=== PATIENT | female | born 1985 | race Caucasian/White ===

== ENCOUNTER 2017-11-03 21:42 | Emergency (ER) | payer MEDICAID ==
[2016-09-22 13:58] VITALS: Wt 75.8 kg
[~2017-11-03 21:42] MED LIST: ACE3 PO; AMPH20TA18 PO; BUTA1CAP5 PO; CEPH-13 PO; CIPR-214 PO; CLIN300C99 PO; DAR100 PO; DEXT10TA9 PO; FAMO20TA28 PO; FOLI-68 PO; IBU600 PO; IBU800 PO; IBUP800T37 PO; NO RTN MEDS; OMEP-218 PO; ONDA4TAB PO; OXYC-865 PO; OXYC-869 PO; PAR20 PO; PHEN200T32 PO; PREG150C33 PO; PREG75CA60 PO; SERT-173 PO; SULF-198 PO; TRAM-420 PO; birth control PO
[2017-11-03] MEDS ORDERED: ONDA4TAB PO (22:01)
--- NOTE | 2017-11-03 22:02 | ER Report ---
History and Physical Time Seen By MD: 22:01 Hx. of Stated Complaint: PT IS 10 WEEKS AND IS EXPERIENCING SWELLING TO LEFT BREAST/ AREOLA HPI/ROS CHIEF COMPLAINT: pain and swelling of left breast/nipple area. HISTORY OF PRESENT ILLNESS: This is a 32 year old female. She is 10 weeks into current . She started having some swelling and pain of the left nipple about 5 days ago. Having increasing pain and warmth over the last two days. Has had skin infections and abscesses with prior pregnancies and is concerned that this is what is happening in the breast at this time. No other skin problems currently. Taking Tylenol for pain, but not helping much today. Sees Dr. Palm and Dr. Hou for care. No fevers. Having intermittent nausea , but not worse than what she would expect with early . Allergies: Coded Allergies: hydrocodone (Verified Allergy, Intermediate, VOMITING AND ITCHING, 11/19/15 ) latex (Verified Allergy, Mild, RASH, 11/19/15) Home Meds Active Scripts Acetaminophen With Codeine # 3 (TYLENOL WITH CODEINE #3 TABLET) 1 Each Tablet, 1 EACH PO Q4H Y for PAIN, #10 TAB 0 Refills Prov:DYLAN GUTIERREZ MD 11/03/17 Cephalexin Monohydrate (CEPHALEXIN) 500 Mg Cap, 500 MG PO Q6H, #40 CAP 0 Refills Prov:DYLAN GUTIERREZ MD 11/03/17 Reported Medications Ondansetron (ZOFRAN ODT) 4 Mg Tab.rapdis, 4 MG PO Q12H, TAB.GEOVANNY 11/03/17 Ibuprofen (IBUPROFEN) 800 Mg Tablet, 1 TAB PO TID for PAIN, #30 TAB 09/19/16 Famotidine (PEPCID) 20 Mg Tablet, 20 MG PO BID, #20 TAB 09/19/16 Pregabalin (LYRICA) 75 Mg Capsule, 75 MG PO TID, CAPSULE 09/18/16 [ control] No Conflict Check, PO DAILY 09/18/16 Amphet Asp/Amphet/D-Amphet (ADDERALL 10 MG TABLET) 10 Mg Tablet, 15 MG PO BID 09/18/16 Sertraline Hcl (ZOLOFT) 100 Mg Tablet, 1 TAB PO QDAY, TAB 09/18/16 Discontinued Reported Medications Ciprofloxacin Hcl (CIPROFLOXACIN HCL) 500 Mg Tablet, 500 MG PO Q12H, #30 TAB 09/19/16 Phenazopyridine Hcl (PHENAZOPYRIDINE HCL) 200 Mg Tablet, 200 MG PO TID Y for PAIN, #20 TAB 09/19/16 Oxycodone Hcl/Acetaminophen (PERCOCET 7.5-325 MG TABLET) 1 Each Tablet, 1 EACH PO Q4-6H Y for PAIN, #30 TAB 09/19/16 Reviewed Nurses Notes: Yes Hx Smoking: Yes (10 yrs, 10-15 cigs/day) Smoking Status: Current: Every Day Smoker, Light Tobacco Smoker Exposure to Second Hand Smoke?: Yes Hx Substance Use Disorder: No Hx Alcohol Use: Yes Constitutional Vital Sign - Last 24 Hours 11/03/17 11/03/17 21:51 22:35 Temp 98.6 98.6 Pulse 68 74 Resp 16 16 B/P (MAP) 112/57 111/54 (73) Pulse Ox 93 95 O2 Delivery Room Air Room Air Physical Exam General: Alert, no acute distress. Breast: Evaluated the left breast. Areola is tender and warm compared to rest of the breast. No masses or tenderness in the surrounding breast tissue. No fluctuant pocket noted. No drainage noted. Medical Decision Making ED Course/Re-evaluation ED Course Recommended Cephalexin 500mg 4 times a day and use of some Lidocaine gel topically to help with pain. Also provided Tylenol with Codeine for pain. Hot compresses to be used through the weekend till she sees Dr. Palm or Dr. Hou early this week. She will call Sunday to arrange follow-up with them. Decision to Disposition Date: Nov 03, 2017 Decision to Disposition Time: 22:13 Depart Departure Latest Vital Signs Vital Signs Date Time Temp Pulse Resp B/P (MAP) Pulse Ox O2 Delivery O2 Flow Rate FiO2 11/03/17 22:35 98.6 74 16 111/54 (73) 95 Room Air Impression: Primary Impression: Mastitis during Condition: Improved Disposition: HOME OR SELF-CARE Referrals: JAGDEEP PFEIFFER (PCP) New Scripts Acetaminophen With Codeine # 3 (TYLENOL WITH CODEINE #3 TABLET) 1 Each Tablet 1 EACH PO Q4H Y for PAIN, #10 TAB 0 Refills Prov: DYLAN GUTIERREZ MD 11/03/17 Cephalexin Monohydrate (CEPHALEXIN) 500 Mg Cap 500 MG PO Q6H, #40 CAP 0 Refills Prov: DYLAN GUTIERREZ MD 11/03/17 Patient Instructions: Mastitis (ED) Additional Instructions: Follow-up with Dr. Palm or Dr. House on Sunday. Hot pad applied to the breast every hour as often as you are able. Take Tylenol with Codeine, 1 every 4 hours as needed for severe pain, or just plain Tylenol for mild pain. Take Cephalexin 500mg 4 times a day for 10 days. You can apply some lidocaine jel to help decrease pain as well. DYLAN GUTIERREZ MD Nov 03, 2017 22:01
[2017-11-03] MEDS ORDERED: CEPH500C24 PO (22:15)
[2017-11-03] MEDS ORDERED: ACETAM/CODEINE #3 300-30 MG TH 2 TAB/BOTTLE PO ONE (22:15)
[2017-11-03] MEDS ORDERED: ACET-3017 PO (22:15)
[2017-11-03] MEDS ORDERED: CEPHALEXIN 500 MG CAP TH 2 CAP/BOTTLE PO ONE (22:15)
[2017-11-03] MEDS ORDERED: LIDOCAINE 2% JELLY 5 ML TUBE TP ONE (22:20)
[2017-11-03 22:35] VITALS: BP 111/54
== END 2017-11-03 22:45 | disposition home or self-care (01) ==
LOC: ER 21:51
DX: N61.0 Mastitis without abscess (principal)
CPT/HCPCS: 99282

== ENCOUNTER 2017-11-05 12:34 | Emergency (ER) | payer MEDICAID ==
[2016-09-22 13:58] VITALS: Wt 75.8 kg
[~2017-11-05 12:34] MED LIST changes: +ACET-3017 PO; +CEPH500C24 PO
--- NOTE | 2017-11-05 12:40 | ER Report ---
History and Physical Time Seen By MD: 12:40 HPI/ROS CHIEF COMPLAINT: Abscess of the left nipple HISTORY OF PRESENT ILLNESS: This is a 32-year-old female presents to the emergency department for an abscess of the left nipple. Patient states she began to have some left nipple discomfort actually 5 days ago, began to increase in size and discomfort. Patient was evaluated in the emergency department on Sunday, given a prescription for Keflex followed up with her OB/ SENIOR [employer]INEER today subsequently they sent her back to the emergency department as the nipple and abscessed area has increased in size. They did consult with Dr. Barraza the general surgeon on-call to drain the abscess. They did send her to the ER for an ultrasound. The patient states the pain is intermittent and were from 2-8 out of 10. No drainage. No chest pain or shortness of breath. Intermittent chills no fevers. No nausea or vomiting. REVIEW OF SYSTEMS: Respiratory: No cough, no dyspnea. Cardiovascular: No chest pain, no palpitations. Gastrointestinal: No vomiting, no abdominal pain. Musculoskeletal: No back pain. Integumentary: As above. Allergies: Coded Allergies: hydrocodone (Verified Allergy, Intermediate, VOMITING AND ITCHING, 11/19/15 ) latex (Verified Allergy, Mild, RASH, 11/19/15) Home Meds Active Scripts Cephalexin Monohydrate (CEPHALEXIN) 500 Mg Cap, 500 MG PO Q6H, #40 CAP 0 Refills Prov:DYLAN GUTIERREZ MD 11/03/17 Reported Medications Ondansetron (ZOFRAN ODT) 4 Mg Tab.rapdis, 4 MG PO Q12H, TAB.GEOVANNY 11/03/17 Ibuprofen (IBUPROFEN) 800 Mg Tablet, 1 TAB PO TID for PAIN, #30 TAB 09/19/16 Famotidine (PEPCID) 20 Mg Tablet, 20 MG PO BID, #20 TAB 09/19/16 Pregabalin (LYRICA) 75 Mg Capsule, 75 MG PO TID, CAPSULE 09/18/16 Amphet Asp/Amphet/D-Amphet (ADDERALL 10 MG TABLET) 10 Mg Tablet, 15 MG PO BID 09/18/16 Sertraline Hcl (ZOLOFT) 100 Mg Tablet, 1 TAB PO QDAY, TAB 09/18/16 Discontinued Reported Medications [ control] No Conflict Check, PO DAILY 09/18/16 Ciprofloxacin Hcl (CIPROFLOXACIN HCL) 500 Mg Tablet, 500 MG PO Q12H, #30 TAB 09/19/16 Phenazopyridine Hcl (PHENAZOPYRIDINE HCL) 200 Mg Tablet, 200 MG PO TID Y for PAIN, #20 TAB 09/19/16 Oxycodone Hcl/Acetaminophen (PERCOCET 7.5-325 MG TABLET) 1 Each Tablet, 1 EACH PO Q4-6H Y for PAIN, #30 TAB 09/19/16 Discontinued Scripts Acetaminophen With Codeine # 3 (TYLENOL WITH CODEINE #3 TABLET) 1 Each Tablet, 1 EACH PO Q4H Y for PAIN, #10 TAB 0 Refills Prov:DYLAN GUTIERREZ MD 11/03/17 Past Medical/Surgical History The patient has a past medical and surgical history of nerve pain in her legs, kidney stones, depression, anxiety, cystoscopy and stent placement. Reviewed Nurses Notes: Yes Hx Smoking: Yes (10 yrs, 10-15 cigs/day) Smoking Status: Current: Every Day Smoker, Light Tobacco Smoker Exposure to Second Hand Smoke?: Yes Hx Substance Use Disorder: No Hx Alcohol Use: Yes Constitutional Vital Sign - Last 24 Hours 11/05/17 11/05/17 12:39 16:10 Temp 99.1 Pulse 94 90 Resp 18 18 B/P (MAP) 118/63 112/54 (73) Pulse Ox 93 94 O2 Delivery Room Air Room Air Intake and Output 11/05/17 11/05/17 11/06/17 15:00 23:00 07:00 Intake Total 50 ml Balance 50 ml Physical Exam General Appearance: The patient is alert, has no immediate need for airway protection and no current signs of toxicity. Eyes: Pupils equal and round no injection. Respiratory: Chest is non tender, lungs are clear to auscultation. Cardiac: regular rate and rhythm. Gastrointestinal: Abdomen is soft and non tender, no masses, bowel sounds normal. Musculoskeletal: Neck: Neck is supple and non tender. Extremities have full range of motion and are non tender. Skin: Large abscessed nipple area. It is warm to touch, erythematic and painful to palpation. No drainage. DIFFERENTIAL DIAGNOSIS: After history and physical exam differential diagnosis was considered for abscess. Medical Decision Making Data Points Result Diagram: 11/05/17 1350 11/05/17 1350 Laboratory Hematology Test 11/05/17 13:50 Red Blood Count 4.22 M/uL (4.17-5.56) Mean Corpuscular Volume 92.4 fL (80.0-96.0) Mean Corpuscular Hemoglobin 32.3 pg (26.0-33.0) Mean Corpuscular Hemoglobin Concent 35.0 g/dL (32.0-36.0) Red Cell Distribution Width 12.5 % (11.5-14.5) Mean Platelet Volume 9.3 fL (7.2-11.1) Neutrophils (%) (Auto) 74.1 % (39.4-72.5) Lymphocytes (%) (Auto) 19.6 % (17.6-49.6) Monocytes (%) (Auto) 4.9 % (4.1-12.4) Eosinophils (%) (Auto) 0.6 % (0.4-6.7) Basophils (%) (Auto) 0.8 % (0.3-1.4) Nucleated RBC Relative Count (auto) 0.0 /100WBC Neutrophils # (Auto) 11.0 K/uL (2.0-7.4) Lymphocytes # (Auto) 2.9 K/uL (1.3-3.6) Monocytes # (Auto) 0.7 K/uL (0.3-1.0) Eosinophils # (Auto) 0.1 K/uL (0.0-0.5) Basophils # (Auto) 0.1 K/uL (0.0-0.1) Nucleated RBC Absolute Count (auto) 0.01 K/uL Sodium Level 135 mmol/L (137-145) Potassium Level 3.7 mmol/L (3.5-5.0) Chloride Level 102 mmol/L (98-107) Carbon Dioxide Level 24 mmol/L (22-31) Blood Urea Nitrogen 9 mg/dl (7-18) Creatinine 0.60 mg/dl (0.52-1.04) Glomerular Filtration Rate Calc > 60.0 Random Glucose 105 mg/dl (75-110) Calcium Level 10.3 mg/dl (8.4-10.2) Total Bilirubin 0.3 mg/dl (0.2-1.3) Aspartate Amino Transf (AST/SGOT) 14 U/L (0-35) Alanine Aminotransferase (ALT/SGPT) 20 U/L (0-56) Alkaline Phosphatase 55 U/L (0-126) Total Protein 6.9 g/dl (6.3-8.2) Albumin 3.9 g/dl (3.5-5.0) Chemistry Test 11/05/17 13:50 White Blood Count 14.8 k/uL (4.5-11.0) Red Blood Count 4.22 M/uL (4.17-5.56) Hemoglobin 13.7 g/dL (12.0-16.0) Hematocrit 39.0 % (34.0-47.0) Mean Corpuscular Volume 92.4 fL (80.0-96.0) Mean Corpuscular Hemoglobin 32.3 pg (26.0-33.0) Mean Corpuscular Hemoglobin Concent 35.0 g/dL (32.0-36.0) Red Cell Distribution Width 12.5 % (11.5-14.5) Platelet Count 249 K/uL (150-450) Mean Platelet Volume 9.3 fL (7.2-11.1) Neutrophils (%) (Auto) 74.1 % (39.4-72.5) Lymphocytes (%) (Auto) 19.6 % (17.6-49.6) Monocytes (%) (Auto) 4.9 % (4.1-12.4) Eosinophils (%) (Auto) 0.6 % (0.4-6.7) Basophils (%) (Auto) 0.8 % (0.3-1.4) Nucleated RBC Relative Count (auto) 0.0 /100WBC Neutrophils # (Auto) 11.0 K/uL (2.0-7.4) Lymphocytes # (Auto) 2.9 K/uL (1.3-3.6) Monocytes # (Auto) 0.7 K/uL (0.3-1.0) Eosinophils # (Auto) 0.1 K/uL (0.0-0.5) Basophils # (Auto) 0.1 K/uL (0.0-0.1) Nucleated RBC Absolute Count (auto) 0.01 K/uL Glomerular Filtration Rate Calc > 60.0 Calcium Level 10.3 mg/dl (8.4-10.2) Total Bilirubin 0.3 mg/dl (0.2-1.3) Aspartate Amino Transf (AST/SGOT) 14 U/L (0-35) Alanine Aminotransferase (ALT/SGPT) 20 U/L (0-56) Alkaline Phosphatase 55 U/L (0-126) Total Protein 6.9 g/dl (6.3-8.2) Albumin 3.9 g/dl (3.5-5.0) EKG/Imaging Imaging There is no report available this time however I did get a report from Dr. Neumann indicating that there is an abscessed area to the left nipple the material is too thick and tenacious to aspirate with a needle therefore will need to be drained. ED Course/Re-evaluation Clinical Indication for ER IV: IV Access ED Course The patient was admitted to room. A history of physical pain. Differential diagnoses were considered. An IV was started, a CBC, CMP were obtained. Slight elevation in the white count 14.8. Otherwise left studies unremarkable. Ultrasound of the left nipple was consistent with an abscess. Dr. Ch was contacted as noted below, he did drain the abscess in the emergency department and packed it. The patient tolerated the procedure well. Patient was given 1 g of Ancef. Patient was also instructed to [employer] her Keflex prescription. The patient was also instructed to follow-up with Dr. Roldan in one week for reevaluation as per Dr. Ch's recommendation. continue to monitor for worsening infections follow-up with her primary care provider sooner if she notices anything abnormal return to the ER for any other concerns or worsening symptoms. The patient was in agreement with this plan of care and discharged home. 11/05/2017 1:43:19 pm I did speak with Dr. Neumann from radiology she did tell me that there is a thick fluid collection involving the left nipple. I did call speak with Dr. Ch regarding the report, he will come in to evaluate the patient, I will start an IV and blood work. 11/05/2017 2:00:[address] Ch was updated on the ultrasound, he did come down and evaluated the patient and did drain the abscess. See Dr. Ch's is procedural notes. Decision to Disposition Date: Nov 05, 2017 Decision to Disposition Time: 16:20 Depart Departure Latest Vital Signs Vital Signs Date Time Temp Pulse Resp B/P (MAP) Pulse Ox O2 Delivery O2 Flow Rate FiO2 11/05/17 16:10 90 18 112/54 (73) 94 Room Air 11/05/17 12:39 99.1 Impression: Primary Impression: Abscess of nipple during Condition: Improved Disposition: HOME OR SELF-CARE Referrals: JAGDEEP PFEIFFER (PCP) TE RUSSO MD 5 Days Patient Instructions: Abscess (ED) Additional Instructions: Be sure to fill your Keflex prescription and complete the course. Continue to apply warm packs to the abscessed area several times a day, keep it lightly covered. Follow up with Dr. Russo in 5-7, sooner if develop fevers, aches, chills or worsening symptoms. Follow up with your primary care provider/[facility] as scheduled. Drink plenty of water. Get plenty of rest. Take Tylenol as needed for pain. Return to the ED for any other concerns or worsening symptoms. Problem Qualifiers Primary Impression: Abscess of nipple during Trimester: first trimester Qualified Codes: O91.111 - Abscess of breast associated with , first trimester SHASHI BHARDWAJ [employer] Nov 05, 2017 12:40
[2017-11-05 13:58] LABS: PLATELET COUNT, AUTOMATED 249 K/uL (150-450)
[2017-11-05] MEDS: CEFAZOLIN PREM 1 GM/D5W 50 ML 50 ML IVPB SCH ×2 (15:15→17:30)
--- NOTE | 2017-11-05 15:35 | General Surgery Consultation ---
History of Present Illness Requesting Physician Dr. Montenegro Reason for Consult left nipple abscess Chief Complaint L nipple swelling and pain History of Present Illness This 32 year old female that is 10 weeks is [facility] She reports the onset on fullness and pain in her left nipple. No history of nipple discharge. Did breast feed is past, last was 13 months ago. She denies breast trauma. She was started on hot packs and Keflex but has not seen any imporvement. She has had worsening pain and swelling over past 36 hours. She waas found to have an elevated WBC at 14.6 and ultrasound of the breast showed an abscess of the nipple. She has had sebacceous cyst in the past on her face. History Problems: (1) Pre-eclampsia affecting , antepartum Status: Resolved (2) Cellulitis of face Status: Resolved Home Meds Active Scripts Cephalexin Monohydrate (CEPHALEXIN) 500 Mg Cap, 500 MG PO Q6H, #40 CAP 0 Refills Prov:DYLAN GUTIERREZ MD 11/03/17 Reported Medications Ondansetron (ZOFRAN ODT) 4 Mg Tab.rapdis, 4 MG PO Q12H, TAB.GEOVANNY 11/03/17 Ibuprofen (IBUPROFEN) 800 Mg Tablet, 1 TAB PO TID for PAIN, #30 TAB 09/19/16 Famotidine (PEPCID) 20 Mg Tablet, 20 MG PO BID, #20 TAB 09/19/16 Pregabalin (LYRICA) 75 Mg Capsule, 75 MG PO TID, CAPSULE 09/18/16 Amphet Asp/Amphet/D-Amphet (ADDERALL 10 MG TABLET) 10 Mg Tablet, 15 MG PO BID 09/18/16 Sertraline Hcl (ZOLOFT) 100 Mg Tablet, 1 TAB PO QDAY, TAB 09/18/16 Discontinued Reported Medications [ control] No Conflict Check, PO DAILY 09/18/16 Ciprofloxacin Hcl (CIPROFLOXACIN HCL) 500 Mg Tablet, 500 MG PO Q12H, #30 TAB 09/19/16 Phenazopyridine Hcl (PHENAZOPYRIDINE HCL) 200 Mg Tablet, 200 MG PO TID Y for PAIN, #20 TAB 09/19/16 Oxycodone Hcl/Acetaminophen (PERCOCET 7.5-325 MG TABLET) 1 Each Tablet, 1 EACH PO Q4-6H Y for PAIN, #30 TAB 09/19/16 Discontinued Scripts Acetaminophen With Codeine # 3 (TYLENOL WITH CODEINE #3 TABLET) 1 Each Tablet, 1 EACH PO Q4H Y for PAIN, #10 TAB 0 Refills Prov:DYLAN GUTIERREZ MD 11/03/17 Allergies: Coded Allergies: hydrocodone (Verified Allergy, Intermediate, VOMITING AND ITCHING, 11/19/15 ) latex (Verified Allergy, Mild, RASH, 11/19/15) Review of Systems All Systems Reviewed/Normal: Yes, Except as Noted Other left nipple pain and swelling Exam Vital Signs Vital Signs Date Time Temp Pulse Resp B/P (MAP) Pulse Ox O2 Delivery O2 Flow Rate FiO2 11/05/17 12:39 99.1 94 18 118/63 93 Room Air General Appearance: Alert, Awake, No Acute Distress, Afebrile Integumentary: Other (Left nipple swollen, erythematous, and tender. No masses present.) Medical Decision Making Data Points Result Diagram: 11/05/17 1350 11/05/17 1350 Assessment and Plan Problems: (1) Abscess of nipple during Status: Acute Assessment & Plan: I have discussed with patient the possible treatment options , planned procedure of I&D under local and the risks and possible complications , including difficulty breast feeding, and deformity. She wishes to proceed with I&D. Cultures will be taken. Continue Keflex. Follow up with Dr. Russo in 5-7 days. Time Spent: < 30 min Copies to: TE RUSSO MD Venous Thromboembolism VTE Risk Patient's VTE Risk: Low VTE Diagnostic Test 2 Days Prior to Admit: No Antithrombotics Is Pt On Any Antithrombotics?: No Prophylaxis Tx Contraindicated Pharmacological Contraindicati: Pt at Low Risk for VTE Mechanical Contraindications: Pt at Low Risk for VTE Problem Qualifiers (1) Abscess of nipple during : Trimester: first trimester Qualified Codes: O91.111 - Abscess of breast associated with , first trimester LB GODWIN MD Nov 05, 2017 15:35
--- NOTE | 2017-11-05 15:43 | Post Operative Progress Note ---
Post Operative Progress Note Date: Nov 05, 2017 Surgeon: Dima Anesthesia: Local with 1% Xylocaine with epi - 20 ml Pre-Op Diagnosis: Left nipple abcess Post-Op Diagnosis: same Findings: Breast prepped and draped in usual sterile fashion. Prepped and draped in usual sterile fashion. Incision made with an #11 blade on medial aspect of nipple at the juncture with the areolar complex. Foul smelling greenish white purulence. All loculations broken up with a hemostat. Cultures obtained and sent for aerobic and anaerobic culture. Wound packed with 1/4" Iodophore gauze. Procedure(s): Incision and drainage of left nipple absceess Specimen Removed:(May be N/A): Cultures, no tissue Complications: none Estimated Blood Loss: < 2 ml LB GODWIN MD Nov 05, 2017 15:43
[2017-11-05 16:10] VITALS: BP 112/54
--- NOTE | 2017-11-06 08:20 | RADIOLOGY IMAGING REPORT ---
FACILITY: [facility] [place] PATIENT NAME: IRMA ANDRE : [id number] MR: [id number] V: [id number] EXAM DATE: ORDERING PHYSICIAN: SHASHI BHARDWAJ TECHNOLOGIST: Deysi Farfan RT(R)(CT) PROCEDURE:US LEFT BREAST COMPARISON:None. INDICATIONS:evaluate abscessed Left nipple area FINDINGS: Left nipple appears very prominent and hypervascular. Within the nipple there is 2.7 x 1.1 x 2.5cm heterogeneous collection within the nipple with internal echoes. This likely represents thick phlegmonous debris. DIAGNOSTIC CATEGORY 2--BENIGN FINDING. RECOMMENDATIONS: CLINICAL EVALUATION. SURGICAL CONSULTATION. IMPRESSION: BIRADS 2: Benign finding. Left nipple appears swollen and hypervascular with an internal collection likely representing thick phlegmonous debris. Surgical consultation recommended. Dictated by: Hafsa Tapia M.D. on 11/05/2017 at 14:36 Transcribed by: YOSSI on 11/05/2017 at 14:55 Approved by: Hafsa Tapia M.D. on 11/06/2017 at 8:19 [facility]
== END 2017-11-05 16:20 | disposition home or self-care (01) ==
LOC: ER 12:41
DX: O91.011 Infection of nipple associated with pregnancy, first trimester (principal); O99.331 Smoking (tobacco) complicating pregnancy, first trimester; F17.210 Nicotine dependence, cigarettes, uncomplicated; Z3A.10 10 weeks gestation of pregnancy
CPT/HCPCS: 10060; 76642; 85025; 87070; 87073; 96365; 99284; J0690; 82040; 82247; 82310; 82374; 82435; 82565; 82947; 84075; 84132; 84155; 84295; 84450; 84460; 84520

== ENCOUNTER 2018-01-11 11:23 | Inpatient (IN) | payer MEDICAID ==
[~2018-01-11] VITALS: Ht 154.9 cm; Wt 79.8 kg
[2018-01-11 11:30] VITALS: BP 128/69; Ht 154.9 cm; Wt 79.8 kg
[2018-01-11] MEDS ORDERED: LIDOCAINE/SOD BICARB 8.4% SYR SC PRN (11:45)
[2018-01-11] MEDS ORDERED: fentaNYL CITR 100 MCG/2 ML AMP IVP PRN (11:45)
[2018-01-11] MEDS ORDERED: MISOPROSTOL 200 MCG TAB PV ONE ×2 (11:45→16:25)
[2018-01-11] MEDS ORDERED: FLUSH 10 ML SYR IVP PRN (11:45)
[2018-01-11 12:00] LABS: PLATELET COUNT, AUTOMATED 190 K/uL (150-450)
--- NOTE | 2018-01-11 12:28 | History & Physical ---
History of Present Illness EDC per LMP: May 29, 2018 Chief Complaint demise History of Present Illness 32yo at 20wks by LMP presented to clinic at [facility] today for anatomical ultrasound. She was found to have a demise measuring 18wks. She presents for management of this. She denies an bleeding, pain. She has not felt FM this at all. No preeclampsia symptoms. PNC by [facility]. PNR c/b anxiety, depression, ADD and tobacco use. She saw [facility] for an anatomical ultrasound 12/26/17 with reassuring growth, anatomy and findings. History Patient's Blood Type: A Positive Rubella Status: Immune Group B Strep Screen: Unknown Obstetrical History: G1: 39wk 2005 G2: SAB G3: 41wk G4: 38wk 2015, c/b preeclampsia G5: Current Past Medical History: PMH: Depression, anxiety, ADD PSH: Tonsillectomy, right dermoid cyst removal, wisdom teeth Allergies: Coded Allergies: hydrocodone (Verified Allergy, Intermediate, VOMITING AND ITCHING, 11/19/15) latex (Verified Allergy, Mild, RASH, 11/19/15) Social History: Single, partner present and supportive. Unemployed. Smokes 10 cigarettes per day, denies use of alcohol or illicit drugs. Med Rec Home Meds Active Scripts Cephalexin Monohydrate (CEPHALEXIN) 500 Mg Cap, 500 MG PO Q6H, #40 CAP 0 Refills Prov:DYLAN GUTIERREZ MD 11/03/17 Reported Medications Ondansetron (ZOFRAN ODT) 4 Mg Tab.rapdis, 4 MG PO Q12H, TAB.GEOVANNY 11/03/17 Ibuprofen (IBUPROFEN) 800 Mg Tablet, 1 TAB PO TID for PAIN, #30 TAB 09/19/16 Famotidine (PEPCID) 20 Mg Tablet, 20 MG PO BID, #20 TAB 09/19/16 Pregabalin (LYRICA) 75 Mg Capsule, 75 MG PO TID, CAPSULE 09/18/16 Amphet Asp/Amphet/D-Amphet (ADDERALL 10 MG TABLET) 10 Mg Tablet, 15 MG PO BID 09/18/16 Sertraline Hcl (ZOLOFT) 100 Mg Tablet, 1 TAB PO QDAY, TAB 09/18/16 Review of Systems Constitutional: No Fever Neurological: No Syncope Cardiovascular: No Chest Pain Respiratory: No Shortness of Breath, No Cough Gastrointestinal: No Nausea, No Vomiting, No Diarrhea Genitourinary: No Dysuria Musculoskeletal: No Pain Psychiatric: Depression, Anxiety Exam General Exam Vital Signs VS reviewed General Apperance: Alert/Awake/No Acute Distress Neuro: No Gross deficits Eyes: Normal Extraocular Movement & Vison Cardiovascular: Regular Rate and Rhythm Respiratory: No Respiratory Distress, Clear to Auscultation Abdomen: Soft, Non-Tender, Non-Distended, Gravid - Non-Tender : Normal Musculoskeletal: No Weakness/Pain Extremities: No Cyanosis,Clubbing or Edema Integumentary: Skin Intact without Lesions or Rash Psychological: Alert & Oriented X3, Appropriate Mood & Affect Cervical Dialation: 0 Fetus Heart Tones: 0 (Confirmed absent FHT on bedside ultrasound) Medical Decision Making Data Points Result Diagram: 01/11/18 1155 01/11/18 1155 Pre-Admit Course Medical Record Review: Yes Assessment and Plan Problems: (1) demise before 20 weeks with retention of fetus Assessment & Plan: 32yo at 20wks by LMP with an 18wk demise. Had a long discussion about what to expect. Cytotec 400mcg placed. Will plan for epidural. Re-evaluate in 3-4 hours. LALO LARSON MD Jan 11, 2018 12:28
[2018-01-11] MEDS ORDERED: LIDOCAINE/PF 2% 200MG/10ML AMP 200 MG/10 ML AMPUL EPI PRN (12:35)
[2018-01-11] MEDS ORDERED: fentaNYL CITR 100 MCG/2 ML AMP IT PRN (12:35)
[2018-01-11] MEDS ORDERED: FENTANYL/ROPIVACAINE 100 ML BAG EPI PRN (12:35)
[2018-01-11] MEDS ORDERED: BUPIVACAINE 0.5% INJ 30ML VIAL EPI PRN (12:35)
[2018-01-11] MEDS ORDERED: LIDO/EPI 2% MPF 1:200,000 20ML EPI PRN (12:35)
[2018-01-11] MEDS ORDERED: BUPIVACAINE 0.25% MPF INJ EPI PRN (12:35)
[2018-01-11] MEDS: LR(*) 1000 ML BAG 1,000 ML IV SCH ×2 (12:45→14:37)
[2018-01-11] MEDS ORDERED: ONDANSETRON 4 MG/2 ML VIAL ONE (13:35)
[2018-01-11] MEDS ORDERED: ASPI-1471 PO (13:47)
[2018-01-11] MEDS ORDERED: MISOPROSTOL 200 MCG TAB ONE ×2 (16:20→22:26)
--- NOTE | 2018-01-11 16:22 | Labor Progress Note ---
Labor Subjective Progress Notes Subjective Pt is comfortable with an epidural. Labor Objective Vital Signs VS reviewed Cervical Dialation: 1 Cervical Effacement (%): 50 Cervical Consistency: Firm Cervical Position: Mid General Exam General Appearance: Alert/Awake/No Acute Distress Psychological: Alert & Oriented X3, Appropriate Mood & Affect Other Result Diagram: 01/11/18 1155 01/11/18 1155 Assessment and Plan Problems: (1) demise before 20 weeks with retention of fetus Assessment & Plan: Second dose of cytotec placed now. Will re-evaluate in 3-4 hours or sooner as needed. LALO LARSON MD Jan 11, 2018 16:22
[2018-01-11] MEDS ORDERED: ACETA/BUTAL/CAFF 325/50/40 TAB PO PRN (16:25)
--- NOTE | 2018-01-11 17:51 | Anesthesia OB Pre-Anes Eval ---
History of Present Illness Anesthesia Start Date: Jan 11, 2018 Anesthesia Start Time: 13:35 EDC: Jun 02, 2018 : 5 Para: 3 Pain Ratin Result Diagram: 01/11/18 1155 01/11/18 1155 Height (Inches): 61.00 Weight (Pounds): 176 BMI Calculated: 33.25 Past Medical History Medical History: obesity Surgical History: noncontributory Previous Anesthesia: general, epidural Attended Childbirth Classes?: No Hx Anesthesia Reactions: No Hx Family Anesthesia Reaction: No Past Complications: other ( demise this ) Home Meds Reported Medications Aspirin (ASPIR 81) 81 Mg Tablet.dr, 81 MG PO QDAY, TAB 01/11/18 Ondansetron (ZOFRAN ODT) 4 Mg Tab.rapdis, 4 MG PO Q12H, TAB.GEOVANNY 11/03/17 Pregabalin (LYRICA) 75 Mg Capsule, 75 MG PO TID, CAPSULE 09/18/16 Amphet Asp/Amphet/D-Amphet (ADDERALL 10 MG TABLET) 10 Mg Tablet, 15 MG PO BID 09/18/16 Sertraline Hcl (ZOLOFT) 100 Mg Tablet, 1 TAB PO QDAY, TAB 09/18/16 Discontinued Reported Medications Ibuprofen (IBUPROFEN) 800 Mg Tablet, 1 TAB PO TID for PAIN, #30 TAB 09/19/16 Famotidine (PEPCID) 20 Mg Tablet, 20 MG PO BID, #20 TAB 09/19/16 Discontinued Scripts Cephalexin Monohydrate (CEPHALEXIN) 500 Mg Cap, 500 MG PO Q6H, #40 CAP 0 Refills Prov:DYLAN GUTIERREZ MD 11/03/17 Allergies: Coded Allergies: hydrocodone (Verified Allergy, Intermediate, VOMITING AND ITCHING, 11/19/15) latex (Verified Allergy, Mild, RASH, 11/19/15) Anesthesia OB ROS GI ROS: clear liquids Last Solids Date: Jan 11, 2018 Last Solids Time: 12:30 ASA Classification: 2 Assessment and Plan Anesthesia Plan: LEB Epidural Catheter Removal: Removed by: (Catheter will be removed by RN following delivery at convenient time.) JESSICA SEBASTIAN CRNA Jan 11, 2018 17:51
--- NOTE | 2018-01-11 18:05 | Procedure Note ---
Anesthetic Placement Note Anesthesia Plan: LEB Permit for Anesthesia Signed: Yes Anesthesia Technique: Patient Sitting Anesthesia Prep: Betadine Interspace: L 3-4 Local Anesthetic: 1% Lidocaine, 25 Gauge Needle Amount Local - cc's: 10 Anesthesia Needle: 17g Touhy/Schliff Anesthesia Attempts: 3 Loss of Resistance: Normal Saline Depth of ROBERT (cm): 6 Catheter Insertion (cm): 6 Catheter Type: Rashid - Spring Wound Epidural Dressing: Tegaderm, Adhesive Talpa, Other (Paper tape due to sensitivity to adhesives.) Anesthesia Tray: Lot Number ([id number]), Expiration Date (2019-01-06), Reference Number ([id number]) Comment: Difficult placement, unsuccessful L4-5, successful L3-4 but heme in catheter after insertion. Catheter pulled back, flushed with NS until clear, negative aspiration. Pt had positive reaction to test dose (increased heart rate). Catheter removed tip intact. Third attempt, L3-4 again, ROBERT, catheter threaded easily, no heme, no paresthesia. Negative test dose response, sterile dressing, secured to back with paper tape. Anesthesia Medications: Epidural Test Dose: 1.5 Lido/Epi (1:200,000), Dose - mL (3), Time (1400), N egative (No symptoms IV or IT injection.) Epidural Loading Dose: 0.2% Ropivicaine, With Fentanyl 2mcg/ml, Dose - ml (15ml in 5ml increments.), Time (1405) Epidural Infusion: 0.2% Ropivicaine, With Fentanyl 2mcg/ml, Start Time: (1415) Epidural Pump Setting: Bolus Dose - mL (5), Lockout - Minutes (15), Maintenance Rate - mL/hr (10), Maximum per Hour - mL (25) Complications: See note regarding catheter insertion. Comment: Good analgesia, moderate motor block with L>R. Zofran 4mg IVP before procedure for nausea prevention. JESSICA SEBASTIAN CRNA Jan 11, 2018 18:05
--- NOTE | 2018-01-11 19:48 | Labor Progress Note ---
Labor Subjective Progress Notes Subjective Comfortable with epidural. Labor Objective Vital Signs Vital Signs Date Time Temp Pulse Resp B/P (MAP) Pulse Ox O2 Delivery O2 Flow Rate FiO2 01/11/18 11:30 98.6 65 18 128/69 (88) 98 Room Air Cervical Dialation: 3 Cervical Effacement (%): 50 Cervical Consistency: Moderate Cervical Position: Mid Station: -2 General Exam General Appearance: Alert/Awake/No Acute Distress Psychological: Alert & Oriented X3, Appropriate Mood & Affect Other Result Diagram: 01/11/18 1155 01/11/18 1155 Assessment and Plan Problems: (1) demise before 20 weeks with retention of fetus Assessment & Plan: Pt is now 3cm. Pills are only partially dissolved. Will add oral cytotec 100mcg next to see if this will help. LALO LARSON MD Jan 11, 2018 19:48
[2018-01-11] MEDS: ONDANSETRON 4 MG/2 ML VIAL IVP PRN (19:49)
[2018-01-11] MEDS ORDERED: MISOPROSTOL 100 MCG TAB PO ONE ×2 (19:55→22:05)
[2018-01-11] MEDS ORDERED: NICOTINE 14 MG/24 HR PATCH TD SCH (20:00)
[2018-01-11] MEDS ORDERED: IBUP800T37 PO (21:55)
[2018-01-11] MEDS ORDERED: ACET-1718 PO (21:55)
--- NOTE | 2018-01-11 22:19 | OB Delivery Note ---
Delivery Note Vaginal Delivery Type: Spont. Vaginal Delivery Delivery Date: Jan 11, 2018 Delivery Time: 21:39 Estimated Gestational Age(wks): 18 Delivery Anesthesia: Epidural Infant Sex: Male [place] Apgars: 1 Minute (0) Notes: Diagnosed with 18wk demise. Admitted for induction with cytotec. Received 400mcg PV x 2 doses, then 100mcg PO. Delivery of nonviable male infant at 2139hours. Still waiting for placenta to deliver, additional cytotec 200mcg PO given. LALO LARSON MD Jan 11, 2018 22:19
[2018-01-11] MEDS ORDERED: FENTANYL/ROPIVACAINE 100ML BAG 0 ML ONE (23:40)
[2018-01-11] MEDS ORDERED: diphenhydrAMINE 25 MG CAP PO ONE (23:50)
[2018-01-12] VITALS (11 sets, daily range): BP systolic 104–123; BP diastolic 52–58
[2018-01-12] MEDS: ONDANSETRON 4 MG/2 ML VIAL IVP PRN (01:19)
[2018-01-12] MEDS: LR(*) 1000 ML BAG 1,000 ML IV SCH (01:24)
--- NOTE | 2018-01-12 01:27 | Labor Progress Note ---
Labor Subjective Progress Notes Subjective Pt is feeling nauseas. She is comfortable with epidural. Labor Objective Vital Signs Vital Signs Date Time Temp Pulse Resp B/P (MAP) Pulse Ox O2 Delivery O2 Flow Rate FiO2 01/11/18 11:30 98.6 65 18 128/69 (88) 98 Room Air Cervical Dialation: 6 Cervical Effacement (%): 90 Cervical Consistency: Soft Cervical Position: Mid General Exam General Appearance: Alert/Awake/No Acute Distress Psychological: Alert & Oriented X3, Appropriate Mood & Affect Other Result Diagram: 01/11/18 1155 01/11/18 1155 Assessment and Plan Problems: (1) Retained placenta Assessment & Plan: Pt delivered fetus at 2139hrs. During this expectant management with cytotec, I have been hoping for spontaneous delivery of placenta. Over the past hour, she has had ~500cc of blood loss. I placed her in dorsal lithotomy position and cleared the clot out of the vagina. Speculum was placed. Ring forcep was gently passed through cervix to grab the edge of the placenta most distal. This did not reveal any significant movement of the placenta. I suspect it has not yet. I have recommended a suction D&C for complete evacuation. The patient is amenable to this. Will call in OR crew. Will plan Ancef preoperatively. (2) demise before 20 weeks with retention of fetus Assessment & Plan: Fetus delivered, awaiting placenta as above. Problem Qualifiers (1) Retained placenta: Retained placenta detail: complete placenta Qualified Codes: O73.0 - Retained placenta without hemorrhage LALO LARSON MD Jan 12, 2018 01:27
[2018-01-12] MEDS ORDERED: NORMOSOL R SOLN(*) 1000 ML BAG 1,000 ML IV ONE (01:43)
[2018-01-12] MEDS ORDERED: SUCCINYLCHOL CHL 100MG/5ML SYR IVP ONE (02:00)
[2018-01-12] MEDS ORDERED: ROCURONIUM BROM 10 MG/ML 10 ML ONE (02:00)
[2018-01-12] MEDS ORDERED: MISOPROSTOL 200 MCG TAB ONE ×2 (02:40→03:00)
--- NOTE | 2018-01-12 02:54 | Post Operative Note ---
Operative Note - [facility] Operative Day Date: Jan 12, 2018 Time: 02:53 Physicians Surgeon: Jax Anesthesia: Renee QIU Diagnosis Pre-Op Diagnosis: Retained placenta after 18 week demise Post-Op Diagnosis: Same Procedure Findings: Anterior placenta densely adhered to endometrium, suspect accreta Procedure(s): Suction D&C, manual extraction of placenta Specimen Removed:(Maybe N/A): Placenta with cultures Fluids Fluids: IVF: 1500cc Estimated Blood Loss: 500cc LALO LARSON MD Jan 12, 2018 02:54
[2018-01-12] MEDS ORDERED: ceFAZolin(*) 2GM/D5W 50ML 50 ML IVPB ONE (03:38)
[2018-01-12] MEDS ORDERED: METHYLERGONOVINE MAL 0.2MG/ML IM ONE (04:15)
[2018-01-12] MEDS: HYDROmorphone HCL 2 MG TAB PO PRN ×2 (04:49→10:45)
[2018-01-12] MEDS: METHYLERGONOVINE MAL 0.2MG TAB PO SCH ×2 (06:03→11:33)
--- NOTE | 2018-01-12 07:22 | DELIVERY NOTE ---
DELIVERY DATE: January 11, 2018 SURGEON: Madeline Camara MD ANESTHESIA: Epidural by Lonnie Mayorga CRNA PREOPERATIVE DIAGNOSIS: Intrauterine at 18 weeks with intrauterine demise. POSTOPERATIVE DIAGNOSIS: 1. Intrauterine at 18 weeks with intrauterine demise. 2. Delivery of nonviable male at 2139 hours. PROCEDURE Spontaneous vaginal delivery. ESTIMATED BLOOD LOSS 100 cc. INDICATIONS This patient is a 32-year-old 5, para 3-0-1-3 who presented to clinic for an anatomical ultrasound at 20 weeks by LMP. She was found to have demise measuring 18 weeks. She then presented to Labor and Delivery for management of this. She received two doses of vaginal Cytotec 400 micrograms followed by 100 micrograms of p.o. Cytotec. She then was noted to have pressure and was checked with products of conception in the vaginal canal. PROCEDURE The patient was brought into a modified lithotomy position and was asked to give a gentle push and was able to deliver the infant and amniotic sac. At this time, the cord was noted to be significantly twisted and knotted around itself, presumably in a way that could have indicated a cord accident. The cord was clamped on the maternal side and then cut. The nonviable male was then carried to the counter and placed on a blanket. Examination of the fetus did not reveal any obvious abnormalities. An additional dose of 200 micrograms of Cytotec was then administered orally to help with delivery of the placenta. At the time of this dictation, the placenta had not yet been delivered. [facility]
--- NOTE | 2018-01-12 08:11 | OB/GYN Progress Note ---
OB Subjective Progress Notes Subjective Pt is feeling well. Pain is controlled with po meds. Tolerating clears. Not yet ambulating, melendez just removed. She feels the urge to void. Bleeding is appropriate. OB Objective Physical Exam Vital Signs Date Time Temp Pulse Resp B/P (MAP) Pulse Ox O2 Delivery O2 Flow Rate FiO2 01/12/18 07:30 97.6 55 14 106/53 (70) 95 Nasal Cannula 0.5 Intake and Output 01/12/18 06:59 Intake Total 2770 ml Output Total 850 ml Balance 1920 ml Intake Oral 120 ml IV Total 2650 ml Output Urine Total 850 ml General Appearance: Alert/Awake/No Acute Distress Neurological: No Gross deficits Eyes: Normal Extraocular Movement & Vison Respiratory: No Respiratory Distress, Clear to Auscultation Abdomen: Soft, Non-Tender, Non-Distended, Fundus Firm Extremities: No Cyanosis,Clubbing or Edema Integumentary: Skin Intact without Lesions or Rash Psychological: Alert & Oriented X3, Appropriate Mood & Affect Result Diagram: 01/12/18 0323 01/11/18 1155 Assessment and Plan Problems: (1) demise before 20 weeks with retention of fetus Assessment & Plan: PPD#1 s/p of 18wk demise. Will plan to discharge to home. Follow up in 7-10 days. (2) Retained placenta Assessment & Plan: POD#0 s/p suction D&C with manual extraction of placenta. Bleeding is appropriate. Discussed bleeding precautions at home. Continue methergine for total of 24hrs. Problem Qualifiers (1) Retained placenta: Retained placenta detail: complete placenta Qualified Codes: O73.0 - Retained placenta without hemorrhage LALO LARSON MD Jan 12, 2018 08:11
--- NOTE | 2018-01-12 08:13 | OB/GYN Discharge Summary ---
Discharge Summary Reason for Hosp/Final Diag: (1) demise before 20 weeks with retention of fetus Hospital Course & Plan: PPD#1 s/p of 18wk demise. Will plan to discharge to home. Follow up in 7-10 days. (2) Retained placenta Hospital Course & Plan: POD#0 s/p suction D&C with manual extraction of placenta. Bleeding is appropriate. Discussed bleeding precautions at home. Co ntinue methergine for total of 24hrs. Lates Vital Signs Vital Signs Date Time Temp Pulse Resp B/P (MAP) Pulse Ox O2 Delivery O2 Flow Rate FiO2 01/12/18 07:30 97.6 55 14 106/53 (70) 95 Nasal Cannula 0.5 Weight (Pounds): 176 Result Diagram: 01/12/18 0323 01/11/18 1155 Condition: Improved Discharge: Home, Self Senior Care Meds Active Scripts Acetaminophen With Codeine # 3 (ACETAMINOPHEN-COD #3 TABLET) 1 Each Tablet, 1-2 EACH PO Q6H PRN for severe pain, #10 TAB 0 Refills Take 1-2 tablets as needed for pain no closer than every 4 hours. Prov:LALO LARSON MD 01/11/18 Reported Medications Aspirin (ASPIR 81) 81 Mg Tablet.dr, 81 MG PO QDAY, TAB 01/11/18 Ondansetron (ZOFRAN ODT) 4 Mg Tab.rapdis, 4 MG PO Q12H, TAB.GEOVANNY 11/03/17 Pregabalin (LYRICA) 75 Mg Capsule, 75 MG PO TID, CAPSULE 09/18/16 Amphet Asp/Amphet/D-Amphet (ADDERALL 10 MG TABLET) 10 Mg Tablet, 15 MG PO BID 09/18/16 Sertraline Hcl (ZOLOFT) 100 Mg Tablet, 1 TAB PO QDAY, TAB 09/18/16 Discontinued Reported Medications Ibuprofen (IBUPROFEN) 800 Mg Tablet, 1 TAB PO TID for PAIN, #30 TAB 09/19/16 Famotidine (PEPCID) 20 Mg Tablet, 20 MG PO BID, #20 TAB 09/19/16 Discontinued Scripts Cephalexin Monohydrate (CEPHALEXIN) 500 Mg Cap, 500 MG PO Q6H, #40 CAP 0 Refills Prov:DYLAN GUTIERREZ MD 11/03/17 Follow up Referrals: HOPPER OPERATOR - In One Week @ [facility] Discharge Diet: As Tolerates Discharge Activity: Pelvic Rest Problem Qualifiers (1) Retained placenta: Retained placenta detail: complete placenta Qualified Codes: O73.0 - Retained placenta without hemorrhage LALO LARSON MD Jan 12, 2018 08:13
[2018-01-12] MEDS ORDERED: IBUPROFEN 800 MG TAB PO PRN (08:15)
[2018-01-12] MEDS ORDERED: METH0.2T6 PO (09:27)
--- NOTE | 2018-01-12 15:40 | Anesthesia Post Eval Note ---
Anesthesia Post Eval Note Vital Signs 01/12/18 07:30 Temp 97.6 Pulse 55 Resp 14 B/P (MAP) 106/53 (70) Pulse Ox 95 O2 Delivery Nasal Cannula O2 Flow Rate 0.5 Pt able to participate in Eval: Yes Cardiovascular Status: Satisfactory Respiratory Status: Satisfactory Pain Managment: Satisfactory PO Nausea/Vomiting: Satisfactory Temperature Management: Satisfactory Mental Status: Satisfactory Post-Op Hydration Status: Satisfactory Anesthesia Type: PELON ARIAS CRNA Jan 12, 2018 15:40
[2018-01-12] MEDS ORDERED: NICOTINE 14 MG/24 HR PATCH TD SCH (20:00)
--- NOTE | 2018-01-15 10:32 | OPERATIVE REPORT 1 ---
EVENT DATE: January 12, 2018 SURGEON: Madeline Camara MD ANESTHESIOLOGIST: Rashawn Duran M.D. ANESTHESIA: General endotracheal. PREOPERATIVE DIAGNOSIS Retained placenta after 18-week demise. POSTOPERATIVE DIAGNOSIS Retained placenta after 18-week demise. FINDINGS Anterior placenta densely adhered to the endometrium, suspect possible accreta. PROCEDURE PERFORMED Suction dilatation and curettage with manual extraction of the majority of the placenta. SPECIMENS Placenta with cultures. IV FLUIDS 1500 cc. ESTIMATED BLOOD LOSS 500 cc. INDICATIONS FOR PROCEDURE Patient is a 32-year-old 5, para 3-0-2-3 who presented initially with an 18-week demise. She was able to deliver the fetus without difficulty but after over four hours was unable to deliver the placenta. The patient then began bleeding and was consented for operative suction dilation and curettage to help remove the placenta. She, therefore, was taken to the operating room. DESCRIPTION OF PROCEDURE The patient was properly identified and taken to the operating room. She was administered Ancef preoperatively for prophylactic antibiotics and Methergine for uterine tone. A speculum was placed but the cervix was difficult to visualize. Therefore, a weighted speculum followed by Reynold anteriorly were placed, which revealed a redundant dilated cervix. The anterior and posterior lips of the cervix were grasped with Allis clamps. The 12 mm suctioning curette was easily passed up to the fundus and approximately five attempts were taken with the suction device. However, there was minimal return of any significant tissue. Therefore, all of the instrumentation was removed as well as the speculum. I was able to introduce one hand into the fundus of the uterus, which confirmed the majority of the placenta was adhered anteriorly. The placenta was very densely adhered and was able to be removed in different chunks manually. I do suspect that she had an element of a placenta accreta due to how densely this was adhered. Multiple attempts were made to manually extract the majority of the placenta. Once I was unable to palpate any definitive placenta left, the suction curette was reintroduced and a final pass was made. The patient did have a decent amount of bleeding despite the uterus starting to firm. Therefore, Cytotec 800 micrograms was placed rectally to help with uterine tone. Uterine massage was then performed for approximately three minutes, after which time the tone was much improved of the uterus. The procedure was then terminated. The patient tolerated the procedure well and recovered in the Post- Anesthesia Care Unit. KIAN
== END 2018-01-12 11:55 | disposition home or self-care (01) | DRG 807 ==
LOC: OB 11:23
PROVIDERS: ADMIT Obstetrics & Gynecology; ATTEND Obstetrics & Gynecology
PROC: 10E0XZZ Delivery of Products of Conception, External Approach (ICD-10-PCS; principal; 2018-01-11)
PROC: 10D17Z9 Manual Extraction of Products of Conception, Retained, Via Natural or Artificial Opening (ICD-10-PCS; 2018-01-11)
PROC: 3E0P7VZ Introduction of Hormone into Female Reproductive, Via Natural or Artificial Opening (ICD-10-PCS; 2018-01-11)
DX: O02.1 Missed abortion (principal); Z37.1 Single stillbirth; O69.2XX0 Labor and delivery complicated by other cord entanglement, with compression, not applicable or unspecified; O99.342 Other mental disorders complicating pregnancy, second trimester; O99.332 Smoking (tobacco) complicating pregnancy, second trimester; O99.212 Obesity complicating pregnancy, second trimester; F41.8 Other specified anxiety disorders; F17.210 Nicotine dependence, cigarettes, uncomplicated; E66.9 Obesity, unspecified; Z3A.18 18 weeks gestation of pregnancy; Z68.33 Body mass index [BMI] 33.0-33.9, adult
CPT/HCPCS: 36415; 82040; 82247; 82310; 82374; 82435; 82565; 82947; 84075; 84132; 84155; 84295; 84450; 84460; 84520; 85025; 85027; 86850; 86900; 86901; 87070; 87073; 87176; 88307; J0330; J0690; J2210; J2405; J7120

== ENCOUNTER → 2018-02-15 | Outpatient (CLI) | payer MEDICAID ==
[2018-01-11 11:30] VITALS: BMI 33.2
[~2018-02-15] MED LIST changes: +ACET-1718 PO; +ASPI-1471 PO; +METH0.2T6 PO
== END ==
LOC: LAB 14:44
PROVIDERS: ATTEND Obstetrics & Gynecology
DX: Z87.59 Personal history of other complications of pregnancy, childbirth and the puerperium (principal)
CPT/HCPCS: 36415; 81240; 81241; 84443; 85300; 85303; 85306; 85610; 85613; 85730; 86147; 86592; 86747

== ENCOUNTER → 2018-05-10 | Outpatient (CLI) | payer MEDICAID ==
[2018-01-11 11:30] VITALS: BMI 33.2
[2018-05-10 12:35] LABS: PLATELET COUNT, AUTOMATED 270 K/uL (150-450)
== END ==
LOC: LAB 12:14
PROVIDERS: ATTEND Obstetrics & Gynecology
DX: N92.6 Irregular menstruation, unspecified (principal)
CPT/HCPCS: 36415; 84443; 85025

== ENCOUNTER → 2018-10-07 | Outpatient (CLI) | payer MEDICAID ==
[2018-01-11 11:30] VITALS: BMI 33.2
[2018-10-07 12:28] LABS: PLATELET COUNT, AUTOMATED 203 K/uL (150-450)
== END ==
LOC: LAB 07:52
PROVIDERS: ATTEND Obstetrics & Gynecology
DX: Z34.01 Encounter for supervision of normal first pregnancy, first trimester (principal)
CPT/HCPCS: 36415; 81001; 84702; 85025; 86592; 86703; 86762; 86850; 86900; 86901; 87088; 87340